=== PATIENT | male | born 1965 | race Caucasian/White ===

== ENCOUNTER 2018-07-11 11:29 | Day surgery (SDC) | payer OTHER, SELFPAY ==
--- NOTE | 2018-07-11 11:39 | PM.HP.1 ---
History of Present Illness Date Patient Seen: 07/11/18 Chief complaint: [id number] COLONOSCOPY W/POSS BX Narrative: 53-year-old male who is here for colon cancer screening. Patient had a prior virtual colonoscopy performed 2012 which was unrevealing per patient. Copy of that report not available to me. Patient currently has no new symptoms Meds Allergies Allergy/AdvReac Type Severity Reaction Status Date / Time No Known Drug Allergies Allergy Verified 07/11/18 11:39 Review of Systems Review of Systems All systems reviewed & are unremarkable except as noted in HPI and below Exam Narrative Exam Narrative: General: Patient is well developed, not in apparent distress Cardiovascular: Regular rate and rhythm, no murmurs, rubs, or gallops; no evidence of edema; no palpable abdominal aortic aneurysm Gastrointestinal: Normoactive bowel sounds, soft, nontender, nondistended, no rebound tenderness, no hepatosplenomegaly, no evidence of hernia Assessment & Plan Plan: Assessment/Plan Narrative: 53-year-old male here for colon cancer screening. Prior virtual colonoscopy did not show any abnormalities in 2012. No family history of colon cancer colon polyps Regarding the procedure(s), the risks and potential complications, benefits, and alternatives (including not doing the procedure) were discussed with the patient. The risks include but are not limited to bleeding, infection, perforation which may require surgical intervention, missed lesions, and adverse reactions to sedative medicines. After a question and answer period, the patient agreed to proceed with the procedure(s) and gives informed consent.
[2018-07-11 11:49] VITALS: BP 141/83; PULSE 57; RESP 16; TEMP 36.3; O2SAT 100; BMI 21.8
--- NOTE | 2018-07-11 11:59 | SUR.PREOP ---
Patient resting in bed with at bedside. Call light in reach, bed locked and low position.
[2018-07-11] MEDS: fentaNYL 100 MCG/2 ML INJ 50 MCG IV (12:40)
--- NOTE | 2018-07-11 13:36 | PM.OP.ENDO ---
Operative Date/Time/Diagnoses Date of procedure: 07/11/18 Procedure Notes Procedure in detail: Surgeon: Sandro Mckinnon MD Procedure: Colonoscopy Preoperative diagnosis: Average risk colon cancer screening; prior virtual colonoscopy 2013 negative Postoperative diagnosis: Grade 1 internal hemorrhoids Medications: Conscious sedation using 5 mg IV of Midazolam and 100 mcg IV of Fentanyl Preanesthesia Assessment An H and P was performed/updated and the Px?s ASA class is 1. The procedure was discussed in detail with the patient. The potential risks and complications including infection, bleeding, missed lesions, perforation, need for surgery in case of perforation, prolonged hospital stay, and were explained. A brief question and answer period was allotted and once all questions were answered, informed consent was obtained. The patient was brought back to the procedure room and placed on standard monitoring. The patient?s vital signs were monitored continuously throughout the entire procedure. Prior to starting, a timeout was performed to confirm the patient?s identity, allergies, medications, and procedure. Procedure in detail The patient was placed in left lateral decubitus position and once adequate sedation was obtained a JONATAN was performed. The digital rectal examination did not reveal any palpable lesions. The tip of the colonoscope was placed in the anal canal and advanced without difficulty all the way to the cecum which was identified by the appendiceal orifice and the ileocecal valve. The terminal ileum was intubated to a distance of 5 cm from the ileocecal valve and the visualized mucosa appeared normal. Colonoscope was brought back to the cecum and careful examination of all henson of the colon was performed with irrigation of any residual stool. The entire examined colon showed no mucosal abnormalities or evidence of polyps. Retroflexion was performed in the rectum which revealed grade 1 internal hemorrhoids. The patient tolerated the procedure well and will be brought back to the recovery area to be discharged once criteria are met. The prep was judged to be good/excellent and adequate to identify polyps less than 5 mm. The withdrawal time was 9 min. The total physician intraservice time was 11 min. Complications There were no complications and estimated blood loss was zero. Recommendations: Resume previous diet Repeat colonoscopy in 10 years for screening purposes An emergency contact number was given to the patient for any complications related to the procedure
[2018-07-11] MEDS: fentaNYL 250 MCG/5 ML INJ IV (14:01)
[2018-07-11] MEDS: MIDAZOLAM 5 MG/5 ML VIAL IV (14:01)
[2018-07-11 14:04] VITALS: BP 103/63; PULSE 55; RESP 11; TEMP 36.1; O2SAT 97
[2018-07-11 14:09] VITALS: BP 94/64; PULSE 49; RESP 12; O2SAT 97
[2018-07-11 14:12] VITALS: BP 106/73; PULSE 61; RESP 17; O2SAT 96
--- NOTE | 2018-07-11 14:13 | PM.DS.1 ---
History of Present Illness Chief complaint: [id number] COLONOSCOPY W/POSS BX Narrative: 53-year-old male who is here for colon cancer screening. Patient had a prior virtual colonoscopy performed 2012 which was unrevealing per patient. Copy of that report not available to me. Patient currently has no new symptoms Discharge Providers Primary care physician: Ryan Mosley MD Discharge provider: Sandro Mckinnon MD Exam Vital Signs (past 8 hours): - 07/11/18 11:49 07/11/18 14:04 Temperature 97.3 F L 96.9 F L Pulse Rate 57 L 55 L Respiratory Rate 16 11 L Blood Pressure 141/83 H 103/63 Pulse Oximetry 100 97 Oxygen Delivery Method Room Air Narrative Exam Narrative: General: Patient is well developed, not in apparent distress Cardiovascular: Regular rhythm, bradycardic, no murmurs, rubs, or gallops; no evidence of edema; no palpable abdominal aortic aneurysm Gastrointestinal: Normoactive bowel sounds, soft, nontender, nondistended, no rebound tenderness, no hepatosplenomegaly, no evidence of hernia Discharge Plan Discharge Plan Patient Disposition: Home Discharge Med Rec/Prescriptions Prescriptions: No Action No Known Home Medications RF: 0 Discharge Orders: Discharge (Order); Ordered 07/11/18 Ordered By: Sandro Mckinnon Visit Report/Discharge Packet Stand Alone Forms: Surgery Discharge Discharge Data Primary Care Provider: Ryan Mosley Attending Provider: Sandro Mckinnon
[2018-07-11 14:17] VITALS: BP 108/75; PULSE 65; RESP 14; O2SAT 96
[2018-07-11 14:25] VITALS: BP 113/78; PULSE 56; RESP 12; TEMP 36.6; O2SAT 100
== END 2018-07-11 14:35 | disposition home or self-care (01) ==
PROVIDERS: PCP Internal Medicine; Visit Provider Internal Medicine Gastroenterology
PROC: 0DJD8ZZ Inspection of Lower Intestinal Tract, Via Natural or Artificial Opening Endoscopic (ICD-10-PCS; CPT 45378; principal; 2018-07-11 12:30)
DX: Z12.11 Encounter for screening for malignant neoplasm of colon (principal); K64.0 First degree hemorrhoids
CPT/HCPCS: 45378; J2250; J3010

== ENCOUNTER → 2020-07-14 14:22 | Outpatient (CLI) | payer OTHER, SELFPAY ==
[2020-07-16 08:37] LABS: COVID19 Sendout Not Detected (Not Detect)
== END ==
PROVIDERS: PCP Internal Medicine; Visit Provider Physician Assistant
DX: Z03.818 Encounter for observation for suspected exposure to other biological agents ruled out (principal)
CPT/HCPCS: 87635

== ENCOUNTER → 2022-02-11 16:38 | Outpatient (CLI) | payer OTHER, SELFPAY ==
[2022-02-11 17:46] LABS: Add Manual Diff / Slide Review NO; Basophils Absolute Auto 0 /uL (0-100); Basophils Percent Auto 0.6 % (0-2); Eosinophils Absolute Auto 100 /uL (0-450); Eosinophils Percent Auto 1.8 % (2-4); Hematocrit 41.7 % (41-53); Hemoglobin 14.3 g/dL (13.5-17.5); Lymphocytes Absolute Auto 1100 /uL (1100-4500); Lymphocytes Percent Auto 27.3 % (25-40); Mean Corpuscular HGB Conc 34.3 % (30-36); Mean Corpuscular Hemoglobin 30.4 PG (26-34); Mean Corpuscular Volume 88.5 fL (80-100); Monocytes Absolute Auto 300 /uL (0-900); Monocytes Percent Auto 8.2 % (3-14); Neutrophils Absolute Auto 2600 /uL (1500-7000); Neutrophils Percent Auto 62.1 % (50-75); Platelet Count 280 X10^3/uL (150-400); Red Blood Cell Count 4.71 X10^6/uL (4.5-5.9); Red Cell Distribution Width 12.8 % (11.6-14.8); White Blood Cell Count 4.1 X10^3/uL (4.5-11.0)
[2022-02-11 17:58] LABS: Alanine Aminotransferase 27 IU/L (<50); Albumin 4.4 g/dL (3.5-5.0); Albumin Globulin Ratio 1.6 (1.0-2.8); Alkaline Phosphatase 45 U/L (38-126); Aspartate Aminotransferase 37 IU/L (17-59); BUN Creatinine Ratio 14.9 (6-22); Bilirubin Total 0.5 mg/dL (0.2-1.3); Blood Urea Nitrogen 11 mg/dL (9-20); Calcium 8.8 mg/dL (8.4-10.2); Carbon Dioxide 32 mmol/L (22-32); Chloride 103 mmol/L (98-107); Estimated Glomerular Filt Rate > 60 mL/min (>60); Globulin 2.8 g/dL (1.7-4.1); Glucose 88 mg/dL (70-100); HEMOLYSIS < 15 (0-50); Potassium 3.7 mmol/L (3.4-5.1); Sodium 140 mmol/L (137-145); Total Protein 7.2 g/dL (6.3-8.2)
[2022-02-12 07:22] LABS: PSA Free % 15.9 % (.); PSA, Total 3.2 ng/mL (0.0-4.0)
== END ==
PROVIDERS: PCP Family Medicine; Referring Provider Family Medicine; Visit Provider Family Medicine
DX: R97.20 Elevated prostate specific antigen [PSA] (principal)
CPT/HCPCS: 36415; 80053; 84153; 84154; 85025

== ENCOUNTER → 2023-06-03 08:56 | Outpatient (CLI) | payer OTHER, SELFPAY ==
[2023-06-03 10:32] LABS: Add Manual Diff / Slide Review NO; Basophils Absolute Auto 0 /uL (0-100); Basophils Percent Auto 0.6 % (0-2); Eosinophils Absolute Auto 100 /uL (0-450); Eosinophils Percent Auto 2.3 % (2-4); Hemoglobin 14.3 g/dL (13.5-17.5); Lymphocytes Absolute Auto 900 /uL (1100-4500); Lymphocytes Percent Auto 25.8 % (25-40); Mean Corpuscular HGB Conc 34.1 % (30-36); Mean Corpuscular Hemoglobin 30.6 PG (26-34); Mean Corpuscular Volume 89.8 fL (80-100); Monocytes Absolute Auto 300 /uL (0-900); Monocytes Percent Auto 8.3 % (3-14); Neutrophils Absolute Auto 2300 /uL (1500-7000); Platelet Count 248 X10^3/uL (150-400); Red Blood Cell Count 4.68 X10^6/uL (4.5-5.9); Red Cell Distribution Width 12.4 % (11.6-14.8); White Blood Cell Count 3.7 X10^3/uL (4.5-11.0)
[2023-06-03 10:38] LABS: Alanine Aminotransferase 33 IU/L (<50); Albumin 4.2 g/dL (3.5-5.0); Albumin Globulin Ratio 1.7 (1.0-2.8); Alkaline Phosphatase 50 U/L (38-126); Aspartate Aminotransferase 41 IU/L (17-59); BUN Creatinine Ratio 18.9 (6-22); Bilirubin Total 0.6 mg/dL (0.2-1.3); Blood Urea Nitrogen 14 mg/dL (9-20); Calcium 9.1 mg/dL (8.4-10.2); Carbon Dioxide 29 mmol/L (22-32); Chloride 102 mmol/L (98-107); Cholesterol 198 mg/dL (140-199); Estimated Glomerular Filt Rate > 60 mL/min (>60); Globulin 2.5 g/dL (1.7-4.1); Glucose 97 mg/dL (80-110); HDL Cholesterol 73 mg/dL (40-60); HEMOLYSIS < 15 (0-50); LDL Cholesterol Calculated 110 mg/dL (<100); Potassium 4.1 mmol/L (3.4-5.1); Sodium 137 mmol/L (137-145); Total Protein 6.7 g/dL (6.3-8.2); Triglycerides 77 mg/dL (35-150)
[2023-06-04 11:08] LABS: PSA Free % 15.9 % (.); PSA, Total 3.2 ng/mL (0.0-4.0)
[2023-06-10 12:25] LABS: Percent Free Testosterone 2.55 % (1.50-4.20); Testosterone Free 13.13 ng/dL (5.00-21.00); Testosterone Total 514.9 ng/dL (264.0-916.0)
== END ==
PROVIDERS: PCP Family Medicine; Referring Provider Family Medicine; Visit Provider Family Medicine
DX: R97.20 Elevated prostate specific antigen [PSA] (principal); Z00.00 Encounter for general adult medical examination without abnormal findings; R79.89 Other specified abnormal findings of blood chemistry
CPT/HCPCS: 36415; 80053; 80061; 84153; 84154; 84402; 84403; 85025